=== PATIENT | female | born 1980 | race Caucasian/White ===

== ENCOUNTER 2019-07-18 19:45 | Emergency (ER) | payer OTHER ==
[2019-07-18 20:50] LABS: #Basophils 0.1 thou/uL (0.0-0.2); #Eosinphils 0.1 thou/uL (0.0-0.7); #Lymphocytes 2.6 thou/uL (1.20-3.40); #Monocytes 0.7 thou/uL (0.11-0.59); %Basophils 0.8 % (0.0-1.0); %Eosinophils 1.6 % (0.0-10.0); %Monocytes 8.8 % (0.0-10.0); %Neutrophils 53.8 % (42.0-75.0); Hemoglobin 12.4 g/dL (12.0-16.0); Mean Corpuscular HGB CONC 33.5 g/dL (32.0-36.0); Mean Corpuscular Hemoglobin 32.6 pg (27.0-31.0); Mean Corpuscular Volume 97.2 fL (78.0-98.0); Mean Platelet Volume 7.2 fL (7.4-10.4); Platelet Count 232 thou/uL (130-400); Red Blood Cell (RBC) Count 3.81 mill/uL (4.20-5.40); White Blood Cell (WBC) Count 7.5 thou/uL (4.8-10.8)
[2019-07-18 21:08] LABS: ALT (SGPT) 24 U/L (8-55); AST (SGOT) 24 U/L (5-34); Albumin 4.1 g/dL (3.5-5.0); Alkaline Phosphatase 62 U/L (40-110); Anion Gap 7 mmol/L (10-20); BUN (Urea Nitrogen) 19 mg/dL (7.0-18.7); Bilirubin, Total 0.3 mg/dL (0.2-1.2); Calc. Creatinine Clearance 0 mL/min (70-130); Calcium 8.9 mg/dL (7.8-10.44); Carbon Dioxide 31 mmol/L (22-29); Chloride 104 mmol/L (98-107); Estimated GFR-MDRD 81; Globulin 2.4 g/dL (2.4-3.5); Glucose 77 mg/dL (70-105); Potassium 3.7 mmol/L (3.5-5.1); Protein, Total 6.5 g/dL (6.0-8.3); Sodium 138 mmol/L (136-145)
--- NOTE | 2019-07-18 22:14 | ULT ---
PELVIC ULTRASOUND TRANSABDOMINAL AND ENDOVAGINAL OF PELVIS: Indications: Bilateral lower extremity cramping. FINDINGS: Ultrasound was performed earlier today at [place]. There continues to be abnormal echogenicity consistent with mass in the right adnexa. Patient has a p ositive test. Findings would be consistent with ectopic. Small fluid collection endometrium, possibly pseudo gestational sac. Color doppler and spectral analysis demonstrates blood flow to both ovaries. IMPRESSION: Right adnexal mass with positive test. Ectopic is the diagnosis of exclusion. Thi s corresponds to the ultrasound findings earlier today at [place]. POS: [facility]
--- NOTE | 2019-07-19 02:06 | CON ---
DATE OF CONSULTATION: 07/18/2019 HISTORY OF PRESENT ILLNESS: The patient is a 39-year-old female who is transferred from [facility] for concerns of ectopic . She reports first day of her last menstrual period was the end of June, specifically June. After experiencing a much longer period than normal, she did some research online, took a test, found that she had a positive test and established care with [facility] and trying to figure out what is going on. She reports that she had a quantitative HCG done last in the range of about 1500. Repeat testing today in the emergency room has a quantitative value of about 1350. She, given her research online, was concerned about ectopic and came for evaluation to the emergency room and was transferred to [facility] for pelvic ultrasound and further management. The patient reports that she is having some mild pain in her belly, but it was not the reason for her presentation. She reports she had a tubal ligation about 6 years ago. PAST MEDICAL HISTORY: Psoriasis. PAST SURGICAL HISTORY: Tubal ligation, right foot surgery. SOCIAL HISTORY: The patient is a former smoker. ALLERGIES: CECLOR AND PENICILLINS. MEDICATIONS: None. REVIEW OF SYSTEMS: The patient denies any recent illness, fever, fall, headache , chest pain, shortness of breath. PHYSICAL EXAMINATION: VITAL SIGNS: bp 112/62 97 15 99.5 100%ra GENERAL: She appears to be in no acute distress. She is alert and oriented, cooperative and pleasant to interact with. HEAD: Normocephalic, atraumatic. LUNGS: Clear to auscultation bilaterally. HEART: Regular rate and rhythm. ABDOMEN: Soft. She has some very minimal tenderness in the right lower quadrant and none to deep palpation in other regions. LABORATORY DATA: White count of 7.9, hemoglobin 12.4, hematocrit 37.0, and platelets of 323,000. Sodium of 138, potassium 3.7, creatinine 0.79, glucose is 77, AST of 24, ALT of 24, beta quant of 1378. Blood type O positive. Antibody screen is negative. Pelvic ultrasound shows small fluid collection in the endometrium suggesting possible pseudogestational sac and a right adnexal mass measuring 0.6 cm. ASSESSMENT AND PLAN: The patient is a 39-year-old female with a history of tubal ligation 6 years ago, positive test that is roughly as the same from 4 days ago and no clear intrauterine . We did discuss the options of surgical versus medical management, our concerns about an abnormal , specifically ectopic. The patient after reviewing the risks and benefits of both has opted for methotrexate and she has agreed to follow up with [facility] for her serial HCGs. Dr. Griffin, one of the physician residents there was present during our encounter and is agreed to take over her care. The patient is aware that methotrexate can cause abdominal pain and sores. She denies any previous use and has agreed to follow up as instructed with [facility] and physicians. I have discussed these findings and plan of care with the emergency physicians on duty, who will be carrying out methotrexate administration and discharging the patient home. Job ID: [id number]
== END 2019-07-19 00:36 | disposition home or self-care (01) ==
LOC: ERS 19:45
DX: O00.91 Unspecified ectopic pregnancy with intrauterine pregnancy (principal); Z87.891 Personal history of nicotine dependence
CPT/HCPCS: 36415; 76856; 80053; 84702; 85025; 86850; 86900; 86901; 96372; J9250